=== PATIENT | male | born 1990 | race Two or more races ===

== ENCOUNTER 2018-02-22 09:35 | Emergency (ER) | payer OTHER ==
[~2018-02-22] VITALS: Ht 177.8 cm; Wt 81.6 kg
[2018-02-22 09:48] VITALS: BP 137/84
== END 2018-02-22 11:18 | disposition home or self-care (01) ==
LOC: ED 11:12
DX: J02.8 Acute pharyngitis due to other specified organisms (principal); B97.89 Other viral agents as the cause of diseases classified elsewhere
CPT/HCPCS: 87081; 87147; 87880; 99284